=== PATIENT | male | born 1985 | race Caucasian/White ===

== ENCOUNTER 2020-07-29 11:37 | Outpatient (REF) | payer SELFPAY | END 2020-07-29 11:38 | disposition home or self-care (01) | LOC: HO.LAB 11:37 | PROVIDERS: Visit Provider Internal Medicine | DX: Z20.828 Contact with and (suspected) exposure to other viral communicable diseases (principal) | CPT/HCPCS: C9803; U0003 ==

== ENCOUNTER 2020-11-17 11:13 | Emergency (ER) | payer BC, SELFPAY ==
[2020-11-17 12:00] VITALS: BP 108/74; PULSE 75; RESP 18; TEMP 37.1; O2SAT 97; BMI 21.7
[2020-11-17] MEDS: Albuterol Sulfate 90 MCG 8 GM INHALER 2 PUFF INHALE (12:14)
[2020-11-17 12:16] VITALS: PULSE 77
--- NOTE | 2020-11-17 12:20 | ED.GENADULT ---
HPI - General Adult General Chief complaint: General Medical Stated complaint: asthma,needs pump Time Seen by Provider: 11/17/20 11:33 History of Present Illness HPI narrative: Patient complains of asthma wheezing relieved with albuterol but now he is out of his pump and he has been using it frequently for the last several days with good temporary relief but now he is out of his pump no cough no fever Related Data Previous Rx's Medication Instructions Recorded albuterol sulfate 2 puff INHALATION Q4-6H PRN #8.5 g 11/17/20 prednisone 60 mg PO DAILY 4 Days #12 tab 11/17/20 Allergies Allergy/AdvReac Type Severity Reaction Status Date / Time aspirin Allergy Angioedema Verified 11/17/20 11:59 peanut Allergy Angioedema Verified 11/17/20 11:59 Review of Systems Review of Systems: Positive for wheezing and shortness of breath Negatives are no fever no chills no dizziness no weakness no fainting no feeling faint no sore throat no runny nose no cough no chest pain no palpitations no abdominal pain no nausea or vomiting no skin rash no leg pain no leg swelling no calf pain or swelling PMFSH Past Medical History Source: nursing notes reviewed Medical History (Updated 11/18/20 @ 00:00 by Trent Collins) Asthma Social History Social History Advance Directives: No Advance Directives Information Provided: No Physical Exam Vital Signs: Vital Signs: Last Vital Signs Temp 98.7 F 11/17/20 12:00 Pulse 77 11/17/20 12:16 Resp 18 11/17/20 12:00 BP 108/74 11/17/20 12:00 Pulse Ox 97 11/17/20 12:00 Body Mass Index 21.7 General appearance is no acute distress comfortable relaxed cooperative speaking full sentences A&O x3 The pharynx is clear The neck is supple The chest is clear to auscultation bilaterally with slightly diminished sounds no wheezes auscultated The heart rate and rhythm regular B abdomen soft nontender The extremities no calf tenderness or swelling, no edema Skin no rashes Neuro no focal deficit Course Course Course Narrative: Patient is given an inhaler here and took 2 puffs prior to discharge Re-examination several minutes after he used his albuterol showed improved air movement with full symmetrically equal breath sounds improved from the diminished sounds on initial exam, patient is comfortable speaking full sentences and no shortness of breath with ambulation Discharge Plan Discharge Clinical Impression: Asthma Patient Disposition: Home, Self-Care Additional Instructions: We started prednisone as well as replacing her asthma pump Follow with primary doctor Return any time for difficulty breathing, any worse condition or any concerns Prescriptions: New albuterol sulfate 90 mcg/actuation HFA aerosol inhaler 2 puff inhalation Q4-6H PRN (Reason: shortness of breath or wheezing) Qty: 8.5 RF: 0 prednisone 20 mg tablet 60 mg PO DAILY 4 Days Qty: 12 RF: 0 Stand Alone Forms: Work/School Release Interventions: ED Discharge Assessment Last Done: 11/17/20 12:51 Discharge Date/Time: 11/17/20 12:51
== END 2020-11-17 12:51 | disposition home or self-care (01) ==
LOC: HO.ED 12:34
PROVIDERS: Emergency Provider Emergency Medicine
DX: J45.909 Unspecified asthma, uncomplicated (principal); Z79.899 Other long term (current) drug therapy
CPT/HCPCS: 94640; 99283; 99284

== ENCOUNTER 2020-11-26 10:55 | Emergency (ER) | payer BC, SELFPAY ==
[2020-11-26 11:25] VITALS: BP 108/68; PULSE 108; RESP 18; TEMP 36.7; O2SAT 97; BMI 21.6
[2020-11-26 11:37] LABS: Glucose Urine UA NEG (NEG); Leukocyte Esterase Urine 2+ (NEG); Nitrite Urine NEG (NEG); PH 5.5 (5.0-8.0); Specific Gravity - Urine >= 1.030 (1.005-1.025); UACC Culture Trigger YES; Urine Blood 1+ (NEG); Urine Ketones 5 MG/DL (NEG); Urine Protein TRACE MG/DL (NEG-TRACE)
[2020-11-26 11:38] LABS: Appearance Urine CLOUDY; Color Urine DARK YELLOW
[2020-11-26 11:48] LABS: Bacteria Urine TRACE /LPF; Mucus Urine 1+ /LPF; RBC Urine 0-2 /HPF (0); Squamous Epithelial Cell Urine TRACE /LPF; WBC Urine TNTC /HPF (0-4)
--- NOTE | 2020-11-26 13:18 | ED.MALEGU ---
HPI - Male Genitourinary General Chief complaint: Urogenital-Male Stated complaint: uti? Time Seen by Provider: 11/26/20 12:37 Source: patient Mode of arrival: ambulatory History of Present Illness HPI Narrative: 35-year-old With a past medical history of asthma presenting to the ED complaining of pus like white discharge from penis since yesterday and penile head soreness. Admits sexually active with 1 male partner. Denies dysuria, hematuria, frequency, testicular pain, lesions, flank pain, abdominal pain, vomiting MD Complaint: penile discharge Related Data Previous Rx's Medication Instructions Recorded albuterol sulfate 2 puff INHALATION Q4-6H PRN #8.5 g 11/17/20 prednisone 60 mg PO DAILY 4 Days #12 tab 11/17/20 doxycycline hyclate 100 mg PO BID 7 Days #14 tab 11/26/20 Allergies Allergy/AdvReac Type Severity Reaction Status Date / Time aspirin Allergy Angioedema Verified 11/17/20 11:59 peanut Allergy Angioedema Verified 11/17/20 11:59 Review of Systems Review of Systems: Constitutional: No Fever, No Chills Gastrointestinal: No Nausea, No Vomiting, No Diarrhea, No Abdominal pain Genitourinary: No Dysuria, No Urinary Frequency, No Hematuria, No Urgency, No Flank Pain, + penile discharge Skin: No Skin Lesions, No rash Yes all other systems are reviewed and are negative [facility] Past Medical History Attestation statement: The following information was validated with the patient. Medical History (Updated 11/26/20 @ 13:25 by BEBO Bauer) Asthma Social History Social History Alcohol intake: never Smoking Status: Never smoker Use of substances other than those prescribed or required for medical reasons: Yes Substance Use Type: Marijuana Substance Use Frequency: Occasionally Advance Directives: No Advance Directives Information Provided: No Physical Exam Vital Signs: Vital Signs: Last Vital Signs Temp 98.0 F 11/26/20 11:25 Pulse 108 H 11/26/20 11:25 Resp 18 11/26/20 11:25 BP 108/68 11/26/20 11:25 Pulse Ox 97 11/26/20 11:25 Body Mass Index 21.6 Const: General: cooperative, healthy appearing and no acute distress Orientation/consciousness: patient oriented x3 Limitations: no limitations HENMT: Head: Yes normal to inspection Ears: hearing grossly normal bilaterally General nose exam: Normal external nose present Face and sinus: Yes normal facial exam Eyes: General: appearance normal, both eyes and all related structures EOM: EOMs intact bilaterally Neck: Neck: Yes normal visual inspection Resp: Effort & Inspection: normal respiratory effort GI: Inspection: Yes normal to inspection Palpation (GI): Soft to palpation and nontender : Other: Copious White/yellow discharge noted from penis. No appreciable lesions/lumps. General: Yes no CVA tenderness Back/Spine/Pelvis: Back: no CVA tenderness Skin: Rashes: no rashes Wounds: no wounds Neuro: General: patient oriented x3 Gait exam (Neuro): Normal gait present Extrem: General: Yes normal to inspection MDM - Male Genitourinary MDM Narrative Medical decision making narrative: 35-year-old With a past medical history of asthma presenting to the ED complaining of pus like white discharge from penis since yesterday and penile head soreness. On exam tachycardic, patient is nervous, physical exam as above, copious penile discharge noted. Concern for STI rather than UTI. Patient is agreeable to prophylactic treatment in the ED Patient will be treated with 500 IM ceftriaxone and given 1st dose of doxycycline in the ED Lab Data Labs: Lab Results 11/26/20 Range/Units 11:30 Urine Color DARK YELLOW Urine Appearance CLOUDY Urine pH 5.5 (5.0-8.0) Ur Specific [place] >= 1.030 H (1.005-1.025) Urine Protein TRACE (NEG-TRACE) MG/DL Urine Glucose (UA) NEG (NEG) MG/DL Urine Ketones 5 (NEG) MG/DL Urine Blood 1+ H (NEG) Urine Nitrite NEG (NEG) Ur Leukocyte Esterase 2+ H (NEG) Urine RBC 0-2 (0) /HPF Urine WBC TNTC H (0-4) /HPF Ur Squamous Epith Cells TRACE /LPF Urine Bacteria TRACE /LPF Urine Mucus 1+ /LPF Discharge Plan Discharge Clinical Impression: Sexually transmitted infection Patient Disposition: Home, Self-Care Instructions: Sexually Transmitted Diseases (ED) Additional Instructions: You were treated for chlamydia and gonorrhea today in the emergency department, doxycycline is antibiotic, continue treatment as prescribed your should continue treatment until completion for the full 7 days You will be contacted in a couple days with positive results only, no news is good news You can go to [facility] for further STI testing [facility] [address] [place] [id number] Refrain from any sexual contact for 1 week after you complete the treatment/antibiotics for sexually transmitted infections Inform your partners of results, your partner should be tested and treated as well If he develops persistent or worsening symptoms, nausea/vomiting, abdominal pain, any penile lesions return to the ED Prescriptions: New doxycycline hyclate 100 mg tablet 100 mg PO BID 7 Days Qty: 14 RF: 0 No Action albuterol sulfate 90 mcg/actuation HFA aerosol inhaler 2 puff inhalation Q4-6H PRN (Reason: shortness of breath or wheezing) Qty: 8.5 RF: 0 prednisone 20 mg tablet 60 mg PO DAILY 4 Days Qty: 12 RF: 0 Referrals: Physician,None [Primary Care Provider] - 5 days
[2020-11-26] MEDS: cefTRIAXone sodium 500 MG, Lidocaine HCl 1 % MPF 1 ML IM (13:26)
--- NOTE | 2020-11-26 13:50 | PC.NURSE ---
EXAM PERFORMED BY BEBO DUPONT WITH RN WITNESS.
[2020-11-26 14:01] LABS: CT PCR NOT DETECTED (Not Detect.); NG PCR DETECTED (Not Detect.)
== END 2020-11-26 13:44 | disposition home or self-care (01) ==
PROVIDERS: Emergency Provider Emergency Medicine
DX: A64 Unspecified sexually transmitted disease (principal); R36.9 Urethral discharge, unspecified; F12.90 Cannabis use, unspecified, uncomplicated; Z79.899 Other long term (current) drug therapy
CPT/HCPCS: 81001; 81003; 87086; 87491; 87591; 96372; 99284; J0696

== ENCOUNTER 2022-04-06 12:28 | Emergency (ER) | payer BC, SELFPAY ==
[2022-04-06 13:53] VITALS: BP 109/62; PULSE 87; RESP 18; TEMP 37.8; O2SAT 97; BMI 21.7
[2022-04-06 14:29] LABS: Strep A Nucleic Acid Negative (Negative)
[2022-04-06 14:34] LABS: COVID-19 Test Negative (Negative); IDNOW Serial# 16C4AD1C
--- NOTE | 2022-04-06 16:17 | ED.URI ---
HPI - URI/Sore Throat General Chief Complaint: Upper Respiratory Symptoms Stated Complaint: Tonsillitis Time Seen by Provider: 04/06/22 16:06 Source: patient Mode of arrival: ambulatory Limitations: no limitations History of Present Illness HPI Narrative: 36-year-old male presents with 3 days of sore throat, swollen tonsils with exudate, muscle aches, fatigue and fevers. He has been using [id number] medications with poor effect. MD elicited complaint: fever and sore throat Onset (ago): day(s) (3) Consistency: constant Severity: moderate Pain scale (0-10): 7 Description of mucous: clear Able to tolerate fluids by mouth: Yes Exacerbating factors: swallowing and speaking Relieving factors: nothing Associated symptoms: fever, chills, myalgias, headache and sore throat Treatments prior to arrival: acetaminophen, ibuprofen and cold medicine Related Data Previous Rx's Medication Instructions Recorded albuterol sulfate 90 mcg/actuation 2 puff inhalation Q4-6H PRN 11/17/20 aerosol inhaler shortness of breath or wheezing #8.5 grams prednisone 20 mg tablet 60 mg PO DAILY 4 days #12 tabs 11/17/20 doxycycline hyclate 100 mg tablet 100 mg PO BID 7 days #14 tabs 11/26/20 amoxicillin 875 mg-potassium 1 tab PO Q12H 10 days #20 tabs 04/06/22 clavulanate 125 mg tablet Allergies Allergy/AdvReac Type Severity Reaction Status Date / Time aspirin Allergy Angioedema Verified 04/06/22 13:53 peanut Allergy Angioedema Verified 04/06/22 13:53 Review of Systems Review of Systems: Constitutional: Positive Fever, positive Chills ENT/Mouth: No Ear Pain, No Hoarseness, positive sore throat Eyes: No Eye Pain, No Swelling, No Redness, No Foreign Body Cardiovascular: No Chest Pain, No SOB Respiratory: No Cough, No Dyspnea Gastrointestinal: No Nausea, No Vomiting, No Diarrhea, No abdominal Pain Genitourinary: No Dysuria, No Hematuria Musculoskeletal: No joint pain, positive Myalgias, No Joint Swelling Skin: No Skin lacerations, No rash Neuro: No Weakness, No Numbness, No Paresthesias, No Loss of Consciousness, No Dizziness, No Headache Psych: No Anxiety/Panic, No Depression Heme/Lymph: no easy bruising, no Lymphadenopathy Endocrine: No Polyuria, No Polydipsia Yes all other systems are reviewed and are negative [facility] Past Medical History Attestation statement: The following information was validated with the patient. Source: old records reviewed Medical History Asthma Social History Social History Alcohol intake: never Substance Use Type: Marijuana Advance Directives: No Advance Directives Information Provided: No Physical Exam Vital Signs: Vital Signs: Last Vital Signs Temp 100.0 F 04/06/22 13:53 Pulse 87 04/06/22 13:53 Resp 18 04/06/22 13:53 BP 109/62 04/06/22 13:53 Pulse Ox 97 04/06/22 13:53 O2 Del Method 04/06/22 13:53 BMI result Body Mass Index 21.7 Appearance: Alert. Oriented X3. No acute distress. Eyes: Pupils equal, round and reactive to light. Sclera nonicteric. ENT: Pharynx erythematous, bilateral tonsillar exudates and swelling +2 bilaterally, Centor scale 3, posterior and anterior cervical lymphadenopathy noted. No mastoid tenderness. Tympanic membranes bilaterally intact. Neck: Normal inspection. Neck supple. No vertebral tenderness or step-offs. No nuchal rigidity. CVS: Normal heart rate and rhythm. Pulses normal. Respiratory: No respiratory distress. Breath sounds normal. Abdomen: Soft and nontender. Skin: Skin warm and dry. Normal skin color. Normal skin turgor. Extremities: Gait well-balanced well coordinated. Neuro: No motor deficit. No sensory deficit. Cranial nerves 2-12 intact. Course Course Course Narrative: 36-year-old male presents with 3 days of sore throat, tonsillar swelling with exudates, intermittent fevers and chills, and myalgia. Has been taking [id number] pain medications and cold medications with poor effect. Patient is afebrile, and appears nontoxic at this time. Able to manage secretions. Low likelihood of peritonsillar abscess at this time. No Leland's angina. No mastoid tenderness. Patient was given COVID and strep test while in the emergency department waiting room with negative results. Although testing is negative, I feel that Patient clinically fits the description of strep pharyngitis, will order Augmentin. Patient verbalized understanding of and agrees to plan of care discharge home. Verbalized understanding of signs and symptoms indicating need for emergent intervention. MDM - URI/Sore Throat Differential Diagnosis Differential diagnosis: Likely upper respiratory infection, otitis media, sinusitis, viral infection, bronchitis, influenza and pharyngitis Medical Records Attestation: I reviewed the patient's medical records. Lab Data Attestation: I reviewed the patient's lab results. Labs: Lab Results 04/06/22 04/06/22 Range/Units 14:04 14:04 COVID-19 (BAUDILIO) Negative (Negative) COVID-19 Clin Com See Note S. pyogenes GrpA JANINE Negative (Negative) Discharge Plan Discharge Clinical Impression: Pharyngitis Patient Disposition: Home, Self-Care Instructions: Pharyngitis (ED) Additional Instructions: You were evaluated for sore throat. Your strep and COVID tests are negative however I feel that you require antibiotics for this infection. Please take Augmentin 875 mg twice a day for the next 10 days. Please throw away your toothbrush a day 3 and at the end of your antibiotic course. Alternate Tylenol 650 mg every 6 hours as needed for pain management. Thank you for choosing this emergency department for evaluation. Please follow-up with primary care physician as needed. Return to the emergency department for any new, concerning, or worsening symptoms. Prescriptions: New amoxicillin-pot clavulanate 875-125 mg tablet 1 tab PO Q12H 10 Days Qty: 20 0RF No Action albuterol sulfate 90 mcg/actuation HFA aerosol inhaler 2 puff inhalation Q4-6H PRN (Reason: shortness of breath or wheezing) Qty: 8.5 0RF prednisone 20 mg tablet 60 mg PO DAILY 4 Days Qty: 12 0RF doxycycline hyclate 100 mg tablet 100 mg PO BID 7 Days Qty: 14 0RF Interventions: ED Discharge Assessment Last Done: 04/06/22 17:09 Discharge Date/Time: 04/06/22 17:11
[2022-04-06] MEDS: Acetaminophen 325 MG TABLET 650 MG PO (17:01)
[2022-04-06] MEDS: Amoxicillin/Potassium Clav 875 MG TABLET PO (17:01)
--- NOTE | 2022-04-06 17:08 | PC.NURSE ---
PT EVALUATED BY PROVIDER. PLAN IS FOR DC HOME. PT AGREEABLE TO PLAN PT AWAKE, ALERT AND ORIENTED X 3. SKIN WARM AND DRY. RESP UNLABORED. DENIES N/V AIRWAY PATENT. MANAGING SECRETION.S NO ACUTE DISTRESS NOTED.
== END 2022-04-06 17:11 | disposition home or self-care (01) ==
PROVIDERS: Emergency Provider Internal Medicine
DX: J02.9 Acute pharyngitis, unspecified (principal); R50.9 Fever, unspecified; Z20.822 Contact with and (suspected) exposure to COVID-19; F12.90 Cannabis use, unspecified, uncomplicated
CPT/HCPCS: 87635; 87651; 99283

== ENCOUNTER 2022-04-22 09:56 | Emergency (ER) | payer BC, SELFPAY ==
[2022-04-22 10:30] VITALS: BP 120/75; PULSE 92; RESP 16; TEMP 36.8; O2SAT 99; BMI 22.6
[2022-04-22 10:52] LABS: Appearance Urine Clear; Color Urine Yellow; Glucose Urine UA Negative (Negative); Leukocyte Esterase Urine Small (1+) (Negative); Nitrite Urine Negative (Negative); PH 5.5 (5.0-8.0); Specific Gravity - Urine 1.025 (1.005-1.025); Urine Blood Negative (Negative); Urine Ketones Trace mg/dL (Negative); Urine Protein Negative (Neg-Trace)
[2022-04-22 11:03] LABS: Bacteria Urine None Seen (None Seen); Hyaline Casts Urine 0-2 /LPF (0-2); RBC Urine 0-2 /HPF (0-2); Squamous Epithelial Cell Urine 0-2 /HPF (0-2); UACC Culture Trigger YES; WBC Urine 21-50 /HPF (0-5)
--- NOTE | 2022-04-22 11:46 | ED.MALEGU ---
HPI - Male Genitourinary General Chief complaint: Urogenital-Male <BEBO Livingston - Last Filed: 04/22/22 12:10> Stated complaint: STI Test <BEBO Livingston Last Filed: 04/22/22 12:10> Time Seen by Provider: 04/22/22 10:00 <BEBO Livingston - Last Filed: 04/22/22 12:10> Source: patient <BEBO Livingston Last Filed: 04/22/22 12:10> Mode of arrival: ambulatory <BEBO Livingston Last Filed: 04/22/22 12:10> History of Present Illness HPI Narrative: 36-year-old male with a past medical history of asthma presenting to the ED complaining of yellow/white penile discharge x a couple days. Admits to recent new sexual partner. Reports mild nausea. Denies fever, chills, abdominal pain, vomiting, diarrhea, testicular/penile swelling/lesions/erythema <BEBO Livingston Last Filed: 04/22/22 12:10> MD Complaint: penile discharge <BEBO Livingston Last Filed: 04/22/22 12:10> Onset (ago): day(s) <BEBO Livingston Last Filed: 04/22/22 12:10> Related Data Home medications: Previous Rx's Medication Instructions Recorded albuterol sulfate 90 mcg/actuation 2 puff inhalation Q4-6H PRN 11/17/20 aerosol inhaler shortness of breath or wheezing #8.5 grams prednisone 20 mg tablet 60 mg PO DAILY 4 days #12 tabs 11/17/20 doxycycline hyclate 100 mg tablet 100 mg PO BID 7 days #14 tabs 11/26/20 amoxicillin 875 mg-potassium 1 tab PO Q12H 10 days #20 tabs 04/06/22 clavulanate 125 mg tablet doxycycline hyclate 100 mg tablet 100 mg PO BID 7 days #14 tabs 04/22/22 <BEBO Livingston Last Filed: 04/22/22 12:10> Allergies/Adverse reactions: Allergies Allergy/AdvReac Type Severity Reaction Status Date / Time aspirin Allergy Angioedema Verified 04/06/22 13:53 ibuprofen Allergy Angioedema Verified 04/22/22 10:32 peanut Allergy Angioedema Verified 04/06/22 13:53 <BEBO Livingston - Last Filed: 04/22/22 12:10> Review of Systems Review of Systems: Constitutional: No Fever, No Chills, No Fatigue, No Malaise ENT/Mouth: No Hearing loss, No Ear Pain, No Nasal Congestion, No sore throat, No Rhinorrhea Eyes: No Eye Pain, No Swelling, No Redness, No Vision Changes Cardiovascular: No Chest Pain, No SOB Respiratory: No Cough, No Dyspnea Gastrointestinal: No Nausea, No Vomiting, No Diarrhea, No Constipation, No Abdominal pain, No Hematochezia, No Melena Genitourinary: No irregular bleeding, No Dysuria, No Urinary Frequency, No Hematuria, No Urinary Incontinence/retention, No Urgency, No Flank Pain, + penile discharge Musculoskeletal: No joint pain, No Myalgias, No Joint Swelling Skin: No Skin Lesions, No rash Neuro: No Weakness <BEBO Livingston Last Filed: 04/22/22 12:10> Yes all other systems are reviewed and are negative <BEBO Livingston - Last Filed: 04/22/22 12:10> Constitutional: Constitutional: Reports as per HPI <BEBO Livingston - Last Filed: 04/22/22 12:10> [facility] Past Medical History Attestation statement: The following information was validated with the patient. <BEBO Livingston - Last Filed: 04/22/22 12:10> Medical History: Medical History Asthma <BEBO Livingston - Last Filed: 04/22/22 12:10> Social History Social History: Social History Alcohol intake: never Substance Use Type: Marijuana Advance Directives: No Advance Directives Information Provided: No <BEBO Livingston Last Filed: 04/22/22 12:10> Physical Exam Vital Signs: Vital Signs: Last Vital Signs Temp 98.3 F 04/22/22 10:30 Pulse 92 04/22/22 10:30 Resp 16 04/22/22 10:30 BP 120/75 04/22/22 10:30 Pulse Ox 99 04/22/22 10:30 O2 Del Method 04/22/22 10:30 BMI result Body Mass Index 22.6 <BEBO Livingston - Last Filed: 04/22/22 12:10> Vital Signs: Last Vital Signs Temp 98.3 F 04/22/22 10:30 Pulse 92 04/22/22 10:30 Resp 16 04/22/22 10:30 BP 120/75 04/22/22 10:30 Pulse Ox 99 04/22/22 10:30 O2 Del Method 04/22/22 10:30 BMI result Body Mass Index 22.6 <BEBO Wheatley - Last Filed: 04/24/22 10:39> Const: General: cooperative, healthy appearing and no acute distress <BEBO Livingston - Last Filed: 04/22/22 12:10> Orientation/consciousness: patient oriented x3 <BEBO Livingston - Last Filed: 04/22/22 12:10> Limitations: no limitations <BEBO Livingston - Last Filed: 04/22/22 12:10> HEENT: Head: Yes normal to inspection and Yes atraumatic <BEBO Livingston - Last Filed: 04/22/22 12:10> Ears: hearing grossly normal bilaterally <BEBO Livingston - Last Filed: 04/22/22 12:10> General nose exam: Normal external nose present <BEBO Livingston - Last Filed: 04/22/22 12:10> Face and sinus: Yes normal facial exam <BEBO Livingston - Last Filed: 04/22/22 12:10> Eyes: General: appearance normal, both eyes and all related structures <BEBO Livingston - Last Filed: 04/22/22 12:10> EOM: EOMs intact bilaterally <BEBO Livingston - Last Filed: 04/22/22 12:10> Neck: Neck: Yes normal visual inspection and Yes no meningeal signs <BEBO Livingston - Last Filed: 04/22/22 12:10> Resp: Effort & Inspection: normal respiratory effort and no respiratory distress <BEBO Livingston - Last Filed: 04/22/22 12:10> Auscultation: clear to auscultation bilaterally <BEBO Livingston - Last Filed: 04/22/22 12:10> Cardio: Rate: regular rate <BEBO Livingston - Last Filed: 04/22/22 12:10> Heart sounds: S1 normal heart sound present and S2 normal heart sound present <BEBO Livingston - Last Filed: 04/22/22 12:10> GI: Inspection: Yes normal to inspection <BEBO Livingston - Last Filed: 04/22/22 12:10> Palpation (GI): Soft to palpation and nontender <BEBO Livingston - Last Filed: 04/22/22 12:10> : Other: Patient deferred exam <BEBO Livingston - Last Filed: 04/22/22 12:10> Skin: Rashes: no rashes <BEBO Livingston - Last Filed: 04/22/22 12:10> Wounds: no wounds <BEBO Livingston - Last Filed: 04/22/22 12:10> Neuro: General: patient oriented x3, tone normal and no meningeal signs <BEBO Livingston - Last Filed: 04/22/22 12:10> Gait exam (Neuro): Normal gait present <BEBO Livingston - Last Filed: 04/22/22 12:10> Extrem: General: Yes normal to inspection <BEBO Livingston - Last Filed: 04/22/22 12:10> Course Course Course Narrative: -UA with small leuk esterase and 21-50 wbc's likely from STI > will hold on UTI treatment at this time <BEBO Livingston - Last Filed: 04/22/22 12:10> -UA with small leuk esterase and 21-50 wbc's likely from STI > will hold on UTI treatment at this time Patient was treated for this, but he did test positive for gonorrhea, I called the patient and educated among need to make sure that any sexual partner is tested and treated and also advised retest at clinic to confirm successful treatment, and if he wants to be tested for HIV <BEBO Wheatley - Last Filed: 04/24/22 10:39> MDM - Male Genitourinary MDM Narrative Medical decision making narrative: 36-year-old male with a past medical history of asthma presenting to the ED complaining of yellow/white penile discharge x a couple days. On exam vital signs stable, NAD, patient deferred exam. Concern for STI. Low suspicion for testicular torsion/orchitis or epididymitis Plan: STI testing, patient agreeable to empiric treatment with IM Rocephin and p.o. doxycycline. Will refer to [facility] <BEBO Livingston - Last Filed: 04/22/22 12:10> Medical Records Attestation: I reviewed the patient's medical records. <BEBO Livingston Last Filed: 04/22/22 12:10> Lab Data Attestation: I reviewed the patient's lab results. <BEBO Livingston Last Filed: 04/22/22 12:10> Labs: Lab Results 04/22/22 04/22/22 Range/Units 10:40 10:40 Urine Color Yellow Urine Appearance Clear Urine pH 5.5 (5.0-8.0) Ur Specific [place] 1.025 (1.005-1.025) Urine Protein Negative (Neg-Trace) mg/dL Urine Glucose (UA) Negative (Negative) mg/dL Urine Ketones Trace (Negative) mg/dL Urine Blood Negative (Negative) Urine Nitrite Negative (Negative) Ur Leukocyte Esterase Small (1+) H (Negative) Urine RBC 0-2 (0-2) /HPF Urine WBC 21-50 H (0-5) /HPF Ur Squamous Epith Cells 0-2 (0-2) /HPF Urine Bacteria None Seen (None Seen) Hyaline Casts 0-2 (0-2) /LPF Chlam trachomat DNA PCR NOT DETECTED (Not Detect.) N.gonorrhoeae DNA (PCR) DETECTED A (Not Detect.) <BEBO Livingston Last Filed: 04/22/22 12:10> Lab Results 04/22/22 04/22/22 Range/Units 10:40 10:40 Urine Color Yellow Urine Appearance Clear Urine pH 5.5 (5.0-8.0) Ur Specific [place] 1.025 (1.005-1.025) Urine Protein Negative (Neg-Trace) mg/dL Urine Glucose (UA) Negative (Negative) mg/dL Urine Ketones Trace (Negative) mg/dL Urine Blood Negative (Negative) Urine Nitrite Negative (Negative) Ur Leukocyte Esterase Small (1+) H (Negative) Urine RBC 0-2 (0-2) /HPF Urine WBC 21-50 H (0-5) /HPF Ur Squamous Epith Cells 0-2 (0-2) /HPF Urine Bacteria None Seen (None Seen) Hyaline Casts 0-2 (0-2) /LPF Chlam trachomat DNA PCR NOT DETECTED (Not Detect.) N.gonorrhoeae DNA (PCR) DETECTED A (Not Detect.) <BEBO Wheatley - Last Filed: 04/24/22 10:39> Discharge Plan Discharge Clinical Impression: Abnormal penile discharge, STI (sexually transmitted infection) <BEBO Livingston - Last Filed: 04/22/22 12:10> Patient Disposition: Home, Self-Care <BEBO Livingston Last Filed: 04/22/22 12:10> Instructions: Sexually Transmitted Diseases (ED) <BEBO Livingston - Last Filed: 04/22/22 12:10> Additional Instructions: You were tested for gonorrhea and chlamydia today in the emergency room, your also prophylactically treated. Continue taking prescribed antibiotics until completion. Avoid the sun while on this antibiotic as makes you sensitive to the sun. He should follow up with [facility] for further testing of STIs. Avoid any sexual contact until you have completed your treatment. Inform your partners so they can be tested and treated as well <BEBO Livingston - Last Filed: 04/22/22 12:10> Prescriptions: New doxycycline hyclate 100 mg tablet 100 mg PO BID 7 Days Qty: 14 0RF No Action albuterol sulfate 90 mcg/actuation HFA aerosol inhaler 2 puff inhalation Q4-6H PRN (Reason: shortness of breath or wheezing) Qty: 8.5 0RF prednisone 20 mg tablet 60 mg PO DAILY 4 Days Qty: 12 0RF doxycycline hyclate 100 mg tablet 100 mg PO BID 7 Days Qty: 14 0RF amoxicillin-pot clavulanate 875-125 mg tablet 1 tab PO Q12H 10 Days Qty: 20 0RF <BEBO Livingston - Last Filed: 04/22/22 12:10> Referrals: Physician,None [Primary Care Provider] - <BEBO Livingston - Last Filed: 04/22/22 12:10> Interventions: ED Discharge Assessment Last Done: 04/22/22 12:18 <BEBO Livingston - Last Filed: 04/22/22 12:10> Discharge Date/Time: 04/22/22 12:20 <BEBO Livingston - Last Filed: 04/22/22 12:10>
[2022-04-22] MEDS: cefTRIAXone sodium 500 MG, Lidocaine HCl 1 % MPF 1 ML IM (12:02)
[2022-04-22 12:44] LABS: CT PCR NOT DETECTED (Not Detect.); NG PCR DETECTED (Not Detect.)
== END 2022-04-22 12:20 | disposition home or self-care (01) ==
PROVIDERS: Physician Assistant Medical; Emergency Provider Emergency Medicine Emergency Medical Services
DX: A54.9 Gonococcal infection, unspecified (principal)
CPT/HCPCS: 81001; 87086; 87491; 87591; 96372; 99283; 99284; J0696

== ENCOUNTER 2022-07-09 18:02 | Emergency (ER) | payer BC, SELFPAY ==
[2022-07-09 18:39] VITALS: BP 104/80; PULSE 88; RESP 16; TEMP 36.8; O2SAT 100; BMI 23.3
[2022-07-09 19:03] LABS: Appearance Urine Clear; Color Urine Dark Yellow; Glucose Urine UA Negative (Negative); Leukocyte Esterase Urine Trace (Negative); Nitrite Urine Negative (Negative); Specific Gravity - Urine >= 1.030 (1.005-1.025); UMIC TRIGGER UACC YES; Urine Blood Negative (Negative); Urine Ketones Trace mg/dL (Negative); Urine Protein Negative (Neg-Trace)
[2022-07-09 19:05] LABS: Bacteria Urine None Seen (None Seen); Hyaline Casts Urine 0-2 /LPF (0-2); RBC Urine 0-2 /HPF (0-2); Squamous Epithelial Cell Urine 0-2 /HPF (0-2); WBC Urine 0-5 /HPF (0-5)
--- NOTE | 2022-07-09 20:09 | ED.MALEGU ---
HPI - Male Genitourinary General Chief complaint: Urogenital-Male Stated complaint: UTI or STD check up Time Seen by Provider: 07/09/22 20:04 Source: patient Mode of arrival: ambulatory Limitations: no limitations History of Present Illness HPI Narrative: 36-year-old male presents for abnormal penile discharge. MD Complaint: penile discharge and possible STD exposure Onset (ago): week(s) (1) Duration: constant Severity: moderate Quality: burning Relieving factors: none Exacerbating factors: urination and sexual intercourse Context: known STD exposure Associated symptoms: Reports discharge and dysuria Related Data Sexually active: Yes Previous Rx's Medication Instructions Recorded albuterol sulfate 90 mcg/actuation 2 puff inhalation Q4-6H PRN 11/17/20 aerosol inhaler shortness of breath or wheezing #8.5 grams prednisone 20 mg tablet 60 mg PO DAILY 4 days #12 tabs 11/17/20 doxycycline hyclate 100 mg tablet 100 mg PO BID 7 days #14 tabs 11/26/20 amoxicillin 875 mg-potassium 1 tab PO Q12H 10 days #20 tabs 04/06/22 clavulanate 125 mg tablet doxycycline hyclate 100 mg tablet 100 mg PO BID 7 days #14 tabs 04/22/22 doxycycline monohydrate 100 mg 100 mg PO BID 7 days #14 caps 07/09/22 capsule Allergies Allergy/AdvReac Type Severity Reaction Status Date / Time aspirin Allergy Angioedema Verified 04/06/22 13:53 ibuprofen Allergy Angioedema Verified 04/22/22 10:32 peanut Allergy Angioedema Verified 04/06/22 13:53 Review of Systems Review of Systems: Constitutional: No Fever, No Chills ENT/Mouth: No Ear Pain, No Hoarseness, No sore throat Eyes: No Eye Pain, No Swelling, No Redness, No Foreign Body Cardiovascular: No Chest Pain, No SOB Respiratory: No Cough, No Dyspnea Gastrointestinal: No Nausea, No Vomiting, No Diarrhea, No abdominal Pain Genitourinary: Positive penile discharge, No Dysuria, No Hematuria Musculoskeletal: No joint pain, No Myalgias, No Joint Swelling Skin: No Skin lacerations, No rash Neuro: No Weakness, No Numbness, No Paresthesias, No Loss of Consciousness, No Dizziness, No Headache Psych: No Anxiety/Panic, No Depression Heme/Lymph: no easy bruising, no Lymphadenopathy Endocrine: No Polyuria, No Polydipsia Yes all other systems are reviewed and are negative [facility] Past Medical History Attestation statement: The following information was validated with the patient. Source: old records reviewed Medical History Asthma Social History Social History Alcohol intake: never Smoked in Last 30 Days: No Use of substances other than those prescribed or required for medical reasons: No Substance Use Type: Marijuana Advance Directives: No Advance Directives Information Provided: No Physical Exam Vital Signs: Vital Signs: Last Vital Signs Temp 98.3 F 07/09/22 18:39 Pulse 88 07/09/22 18:39 Resp 16 07/09/22 18:39 BP 104/80 07/09/22 18:39 Pulse Ox 100 07/09/22 18:39 O2 Del Method 07/09/22 18:39 BMI result Body Mass Index 23.3 Appearance: Alert. Oriented X3. No acute distress. Eyes: Pupils equal, round and reactive to light. ENT: Pharynx normal. Neck: Normal inspection. Neck supple. CVS: Normal heart rate and rhythm. Pulses normal. Respiratory: No respiratory distress. Breath sounds normal. Abdomen: Soft and nontender. Genitourinary: Positive pearly and penile discharge, no wounds or lesions noted to the glans. Testicular exam within normal limits. Skin: Skin warm and dry. Normal skin color. Normal skin turgor. Extremities: No lower extremity edema. Gait well-balanced well coordinated. Neuro: No motor deficit. No sensory deficit. Cranial nerves 2-12 intact. Course Course Course Narrative: 36-year-old male presents with about a week of penile discharge. Patient is a male that has sex with men, Has had sexual contact with partner with known STI and suspicion for syphilis. Patient does report penile discharge that is purulent and yellow in color. Does have dysuria. Patient does not describe pancreas at this time, but has had lumps on his testicles and side of his penis in the past. Detailed discussion with patient, plan of care is to treat for syphilis as well as CT NG. Patient does understand refraining from sexual activity, and if symptoms worsen that he should return for further evaluation Patient verbalized understanding of and agrees to plan of care discharge home. Verbalized understanding of signs symptoms indicating need for emergent intervention. MDM - Male Genitourinary Differential Diagnosis Differential diagnosis: Likely urinary tract infection, urethritis and epididymitis Medical Records Attestation: I reviewed the patient's medical records. Lab Data Attestation: I reviewed the patient's lab results. Labs: Lab Results 07/09/22 Range/Units 18:56 Urine Color Dark Yellow Urine Appearance Clear Urine pH 7.0 (5.0-9.0) Ur Specific [place] >= 1.030 H (1.005-1.025) Urine Protein Negative (Neg-Trace) mg/dL Urine Glucose (UA) Negative (Negative) mg/dL Urine Ketones Trace (Negative) mg/dL Urine Blood Negative (Negative) Urine Nitrite Negative (Negative) Ur Leukocyte Esterase Trace H (Negative) Urine RBC 0-2 (0-2) /HPF Urine WBC 0-5 (0-5) /HPF Ur Squamous Epith Cells 0-2 (0-2) /HPF Urine Bacteria None Seen (None Seen) Hyaline Casts 0-2 (0-2) /LPF Discharge Plan Discharge Clinical Impression: STI (sexually transmitted infection), Syphilis contact Patient Disposition: Home, Self-Care Instructions: Sexually Transmitted Diseases (ED) Additional Instructions: You were evaluated for sexually transmitted exposure. We are treating you for syphilis with penicillin G. We treated you for chlamydia and gonorrhea with ceftriaxone IM injection and doxycycline 100 mg every 12 hours for the next 7 days. Please refrain from sexual activity until symptoms resolve. Thank you for choosing this emergency department for evaluation. Please follow-up with primary care physician as needed. Return to the emergency department for any new, concerning, or worsening symptoms. Prescriptions: New doxycycline monohydrate 100 mg capsule 100 mg PO BID 7 Days Qty: 14 0RF No Action albuterol sulfate 90 mcg/actuation HFA aerosol inhaler 2 puff inhalation Q4-6H PRN (Reason: shortness of breath or wheezing) Qty: 8.5 0RF prednisone 20 mg tablet 60 mg PO DAILY 4 Days Qty: 12 0RF doxycycline hyclate 100 mg tablet 100 mg PO BID 7 Days Qty: 14 0RF amoxicillin-pot clavulanate 875-125 mg tablet 1 tab PO Q12H 10 Days Qty: 20 0RF doxycycline hyclate 100 mg tablet 100 mg PO BID 7 Days Qty: 14 0RF Interventions: ED Discharge Assessment Last Done: 07/09/22 22:10 Discharge Date/Time: 07/09/22 22:11
[2022-07-09] MEDS: cefTRIAXone sodium 500 MG, Lidocaine HCl 1 % MPF 1 ML IM (21:06)
[2022-07-09] MEDS: Penicillin G Benzathine 2,400,000 UNIT/4 ML SYRINGE 2400000 UNIT IM (21:06)
--- NOTE | 2022-07-09 22:09 | PC.NURSE ---
Discharge instructions provided to pt. Pt verbalizes understanding.
[2022-07-10 14:55] LABS: CT PCR NOT DETECTED (Not Detect.); NG PCR NOT DETECTED (Not Detect.)
== END 2022-07-09 22:11 | disposition home or self-care (01) ==
PROVIDERS: Emergency Provider Emergency Medicine
DX: R30.0 Dysuria (principal); R36.9 Urethral discharge, unspecified; Z20.2 Contact with and (suspected) exposure to infections with a predominantly sexual mode of transmission; Z79.899 Other long term (current) drug therapy
CPT/HCPCS: 81001; 81003; 87491; 87591; 96372; 99284; J0561; J0696